=== PATIENT | female | born 1940 | race Caucasian/White ===

== ENCOUNTER 2016-10-27 23:37 | Emergency (ER) | payer BC, MEDICARE ==
--- NOTE | 2016-11-09 15:54 | ER ---
ADMIT: 10/27/2016 RM/LOC: ER [facility] MR#: [id number] [facility] [address] [place] [id number] TAY MITTAL [address] [place] [id number] Emergency Room Report SEX: F AGE: 75 : 1940 DATE: 10/27/2016 A 75-year-old female, drinking wine tonight when she tripped, slipped, lost her balance, fell, and struck her head. See T-sheet for history and physical. CT of the head is negative. CT of the C-spine is negative. She has a large scalp hematoma with some bleeding. Two sutures were placed in attempt to stop bleeding. Pressure dressing will be applied and she will be reevaluated. DISCHARGE DIAGNOSES: Alcohol abuse, closed head injury, and a large scalp hematoma. Paul Joshua MD/ kalen JOB #: [id number] CC: Jason Christensen MD, Attending Physician Golden Castaneda MD, Family Physician
== END 2016-10-28 01:15 | disposition home or self-care (01) ==
LOC: ER 23:37
PROC: 0HQ0XZZ Repair Scalp Skin, External Approach (ICD-10-PCS; principal; 2016-10-27)
DX: S00.03XA Contusion of scalp, initial encounter (principal); F10.10 Alcohol abuse, uncomplicated; I10 Essential (primary) hypertension; Z88.0 Allergy status to penicillin; Z88.2 Allergy status to sulfonamides; W01.0XXA Fall on same level from slipping, tripping and stumbling without subsequent striking against object, initial encounter